=== PATIENT | female | born 1975 | race Caucasian/White ===

== ENCOUNTER 2023-05-06 08:11 | Outpatient (OUT) | payer OTHER, SELFPAY ==
[2023-05-06 09:24] LABS: Basophils Absolute Auto 0.1 10^3/uL (0.0-0.1); Basophils Percent Auto 1.1 % (0.2-2.0); Eosinophils Absolute Auto 0.3 10^3/uL (0.0-0.7); Eosinophils Percent Auto 2.3 % (0.9-7.0); Hematocrit 43.7 % (36.0-48.0); Hemoglobin 15.3 g/dL (12.0-16.0); Immature Granulocytes Abs Auto 0.04 10^3/uL (0.00-0.03); Immature Granulocytes Pct Auto 0.3 % (0.0-0.5); Lymphocytes Absolute Auto 3.1 10^3/uL (1.2-3.8); Lymphocytes Percent Auto 27.2 % (20.5-60.0); Mean Corpuscular Hemoglobin 30.9 pg (26.7-34.0); Mean Corpuscular Volume 88.3 fL (81.0-99.0); Mean Platelet Volume 10.6 fL (9.5-13.5); Monocytes Absolute Auto 0.8 10^3/uL (0.3-0.8); Neutrophils Absolute Auto 7.1 10^3/uL (1.4-6.5); Neutrophils Percent Auto 62.1 % (43.0-75.0); Platelet Count 224 10^3/uL (150-450); Red Blood Count 4.95 10^6/uL (4.20-5.40); Red Cell Distribution Width 11.9 % (11.0-15.0); White Blood Count 11.5 10^3/uL (4.0-11.0)
[2023-05-06 09:51] LABS: Bilirubin Urine NEGATIVE (NEGATIVE); Blood Urine SMALL (NEGATIVE); Clarity Urine CLEAR (CLEAR); Color Urine LT. YELLOW (YELLOW); Glucose Urine UA NEGATIVE (NEGATIVE); Ketones Urine NEGATIVE (NEGATIVE); Leukocyte Esterase Urine NEGATIVE (NEGATIVE); Nitrite Urine NEGATIVE (NEGATIVE); Protein Urine NEGATIVE (NEG/TRACE); Urobilinogen Urine 0.2 EU/dL (0.2-1.0); pH Urine 5.5 (5.0-9.0)
[2023-05-06 09:54] LABS: Alanine Aminotransferase 24 U/L (14-59); Alkaline Phosphatase 49 U/L (46-116); Anion Gap 13.5; Aspartate Amino Transferase <5 U/L (15-37); BUN Creatinine Ratio 19.8; Bilirubin Total 0.4 mg/dL (0.2-1.0); Calcium 9.3 mg/dL (8.5-10.1); Carbon Dioxide 29.4 mmol/L (21.0-32.0); Chloride 101 mmol/L (98-107); Chol HDL Ratio 6.4; Cholesterol 223 mg/dL (<=200); Estimated GFR (African America >60 (>=60); Estimated GFR (Non-African Ame >60 (>=60); Globulin 3.9 g/dL; Glucose 108 mg/dL (74-106); HDL Cholesterol 35 mg/dL (40-60); Potassium 3.9 mmol/L (3.5-5.1); Sodium 140 mmol/L (136-145); Thyroid Stimulating Hormone 2.825 uIU/mL (0.358-3.740); Total Protein 7.9 g/dL (6.4-8.2); Triglycerides 433 mg/dL (<=150); VLDL CHOLESTEROL 86.6 mg/dL
[2023-05-06 09:58] LABS: LDL Cholesterol Direct 114 mg/dL
[2023-05-06 10:03] LABS: Bacteria Urine SMALL #/HPF (NONE SEEN); RBC Urine 0-2 #/HPF (0-2); WBC Urine NONE SEEN #/HPF (NONE SEEN)
[2023-05-06 10:04] LABS: Squamous Epithelial Cell Urine FEW #/LPF (NONE/RARE)
== END 2023-05-06 08:12 | disposition home or self-care (01) ==
LOC: LAB 08:14
PROVIDERS: PCP Nurse Practitioner; Visit Provider Nurse Practitioner
DX: Z78.9 Other specified health status (principal)
CPT/HCPCS: 36415; 80053; 80061; 81001; 83721; 84443; 85025

== ENCOUNTER 2023-05-20 11:27 | Outpatient (OUT) | payer OTHER, SELFPAY ==
[2023-05-20 12:15] LABS: Bilirubin Urine NEGATIVE (NEGATIVE); Blood Urine NEGATIVE (NEGATIVE); Clarity Urine CLEAR (CLEAR); Color Urine YELLOW (YELLOW); Glucose Urine UA NEGATIVE (NEGATIVE); Ketones Urine TRACE mg/dL (NEGATIVE); Leukocyte Esterase Urine NEGATIVE (NEGATIVE); Nitrite Urine NEGATIVE (NEGATIVE); Protein Urine NEGATIVE (NEG/TRACE); Specific Gravity Urine >=1.030 (1.005-1.025)
[2023-05-20 12:18] LABS: Estimated Average Glucose 108 mg/dL; Glycohemoglobin A1C 5.4 % (4.5-6.2)
[2023-05-20 12:22] LABS: WBC Urine NONE SEEN #/HPF (NONE SEEN)
[2023-05-20 12:27] LABS: Bacteria Urine SMALL #/HPF (NONE SEEN); Mucus Urine NONE SEEN (NONE SEEN); RBC Urine NONE SEEN #/HPF (0-2); Squamous Epithelial Cell Urine FEW #/LPF (NONE/RARE)
[2023-05-20 12:28] LABS: Calcium Oxalate Crystals Urine FEW; Crystals Seen? Seen #/HPF (None Seen)
== END 2023-05-20 11:28 | disposition home or self-care (01) ==
LOC: LAB 11:28
PROVIDERS: PCP Nurse Practitioner; Visit Provider Nurse Practitioner
DX: E78.1 Pure hyperglyceridemia (principal); R31.29 Other microscopic hematuria
CPT/HCPCS: 36415; 81001; 83036

== ENCOUNTER 2023-07-21 19:43 | Outpatient (REF) | payer OTHER, SELFPAY ==
[2023-07-26 11:09] LABS: Age Gdln ACOG Testing Note (.); HPV Aptima Negative (Negative); IGP, Aptima HPV, rfx 16/18,45 Note (.)
== END 2023-07-21 19:44 | disposition home or self-care (01) ==
LOC: LAB 19:43
PROVIDERS: PCP Nurse Practitioner; Visit Provider Nurse Practitioner
DX: Z01.419 Encounter for gynecological examination (general) (routine) without abnormal findings (principal)
CPT/HCPCS: 87624; G0145

== ENCOUNTER 2023-07-23 07:34 | Outpatient (OUT) | payer OTHER, SELFPAY ==
[2023-07-23 08:40] LABS: Alanine Aminotransferase 20 U/L (14-59); Albumin Globulin Ratio 1.1; Albumin Level 3.8 g/dL (3.4-5.0); Alkaline Phosphatase 30 U/L (46-116); Anion Gap 12.6; Aspartate Amino Transferase 9 U/L (15-37); BUN Creatinine Ratio 17.5; Bilirubin Total 0.8 mg/dL (0.2-1.0); Calcium 8.9 mg/dL (8.5-10.1); Carbon Dioxide 29.1 mmol/L (21.0-32.0); Chloride 104 mmol/L (98-107); Chol HDL Ratio 5.4; Cholesterol 200 mg/dL (<=200); Estimated GFR (African America >60 (>=60); Estimated GFR (Non-African Ame >60 (>=60); Globulin 3.4 g/dL; Glucose 99 mg/dL (74-106); HDL Cholesterol 37 mg/dL (40-60); Potassium 3.7 mmol/L (3.5-5.1); Sodium 142 mmol/L (136-145); Total Protein 7.2 g/dL (6.4-8.2); Triglycerides 197 mg/dL (<=150); VLDL CHOLESTEROL 39.4 mg/dL
== END 2023-07-23 07:35 | disposition home or self-care (01) ==
PROVIDERS: PCP Nurse Practitioner; Visit Provider Nurse Practitioner
DX: R60.0 Localized edema (principal); E78.1 Pure hyperglyceridemia
CPT/HCPCS: 36415; 80053; 80061

== ENCOUNTER 2023-08-23 14:24 | Outpatient (OUT) | payer OTHER, SELFPAY ==
--- NOTE | 2023-08-23 14:25 | US_ITS ---
[address] [address] Patient Name: KJ REYES MRN: [id number] date: 1975 Sex: F Assigned Patient Location: Current Patient Location: Accession/Order Number: [id number] Exam Date: 08/23/2023 14:26 Report Date: 08/24/2023 06:26 At the request of: DIANA BEASLEY Procedure: US pelvis w/ transvaginal EXAMINATION: US pelvis w/ transvaginal HISTORY: PAIN WITH INTERCOURSE, VAGINAL DRYNESS COMPARISON: No relevant comparison available. TECHNIQUE: Transabdominal and/or transvaginal sonographic examination was performed as indicated by examination type. FINDINGS: UTERUS: Slightly heterogeneous echotexture. Normal size and contour. Uterus size: 6.9 x 2.6 x 1.7 cm ENDOMETRIUM: Normal homogeneous appearance. Endometrial thickness: 2 mm RIGHT OVARY: Normal size and appearance. Blood flow present within ovary on color Doppler. Ovary size: 1.4 x 1.0 x 1.7 cm LEFT OVARY: Normal size and appearance. Blood flow present within ovary on color Doppler. Ovary size: 1.7 x 0.9 x 1.7 cm CUL-DE-SAC: Unremarkable. No significant free fluid. BLADDER: Unremarkable. OTHER: None. US/US pelvis w/ transvaginal IMPRESSION: 1. No suspicious findings to account for patient's symptoms. Electronically authenticated by: GAY BARNES Date: 08/24/2023 06:26
== END 2023-08-23 14:25 | disposition home or self-care (01) ==
LOC: US 14:24
PROVIDERS: PCP Nurse Practitioner; Visit Provider Obstetrics & Gynecology
DX: N84.1 Polyp of cervix uteri (principal); N94.10 Unspecified dyspareunia; N89.8 Other specified noninflammatory disorders of vagina
CPT/HCPCS: 76830; 76856

== ENCOUNTER 2023-09-15 16:24 | Outpatient (OUT) | payer OTHER, SELFPAY ==
--- NOTE | 2023-09-15 | MM_ITS ---
Patient Name: KJ REYES MR#: [id number] : 1975 Exam Date: 09/15/2023 Ordering Doctor: MARICARMEN Hector CNP RADIOLOGY REPORT PROCEDURE: MM TOMOSYNTHESIS SCREENING BI COMPARISON: MAMMO POST BIOPSY LEFT, 09/03/2019. MG MAMM SCREEN TREMAINE W CAD, 08/21/2019. INDICATIONS: Screening for malignant neoplasm Calculator Name NCI Breast Cancer Risk Assessment Tool 5 Year Breast Cancer Risk 0.90% Lifetime Breast Cancer Risk 8.30% Personal Breast Cancer No Personal Ovarian Cancer No Treatments None Family Cancers Grandmother-maternal with breast cancer at age 80; Grandmother-paternal with lung cancer at age 76. LOCATION: [facility] BREAST COMPOSITION: Scattered areas fibroglandular density. FINDINGS: DIAGNOSTIC CATEGORY 2--BENIGN FINDING: RIGHT BREAST: No significant suspicious finding. No significant change has occurred. LEFT BREAST: No significant suspicious finding. Scattered benign-appearing lymph nodes are present. No significant change has occurred. RECOMMENDATIONS: ROUTINE MAMMOGRAM AND CLINICAL EVALUATION IN 12 MONTHS. PLEASE NOTE: A NORMAL MAMMOGRAM DOES NOT EXCLUDE THE POSSIBILITY OF BREAST CANCER. A CLINICALLY SUSPICIOUS PALPABLE LUMP SHOULD BE BIOPSIED. Dictated by: Mike Sullivan M.D. on 09/16/2023 at 14:27 Approved by: Mike Sullivan M.D. on 09/16/2023 at 14:30
== END 2023-09-15 16:25 | disposition home or self-care (01) ==
LOC: MAMMO 16:24
PROVIDERS: PCP Nurse Practitioner; Visit Provider Nurse Practitioner
DX: Z12.31 Encounter for screening mammogram for malignant neoplasm of breast (principal); Z80.3 Family history of malignant neoplasm of breast; Z80.1 Family history of malignant neoplasm of trachea, bronchus and lung
CPT/HCPCS: 77063; 77067

== ENCOUNTER 2024-09-17 20:02 | Outpatient (REF) | payer OTHER, SELFPAY ==
--- OUTSIDE RECORDS SUMMARY | 2024-09-17 20:26 | XMS_ITS | CCD ---
Author Organization [facility] Care Team Providers [facility] Utility Locator Name Role Phone KOJO, ABDULAZIM Admitting Unavailable KOJO, ABDULAZIM Attending Unavailable GAIL FABIAN Referring Unavailable GAIL FABIAN Primary Care Unavailable [place] Procedure Practitioner Unavailab nidia RUANO, SANKET Surgeon Unavailable [place] Procedure Practitioner Unavailab MICHELLE Riley Surgeon Unavailable NADERER, FABIAN Garrett Primary Care Unavailable AZUL LEON Admitting UnavailAZUL Schwab Attending UnavailLOUIS Moses V Consulting Unavailable AZUL LEON Consulting Unavailabl SHAHIDA Aleman Consulting Unavailable AICHHOLZ, NNEKA Admitting Unavailable AICHHOLZ, NNEKA Attending Unavailable AICHHOLZ, NNEKA Consulting Unavailable MIKE SULLIVAN R Consulting Unavailable AICHHOLZ, NNEKA Admitting Unavailable AICHHOLZ, NNEKA Attending Unavailable LOUIS VELÁZQUEZ V Consulting Unavailable AICHHOLZ, NNEKA Consulting Unavailable AICHHOLZ, NNEKA Admitting Unavailable AICHHOLZ, NNEKA Attending Unavailable FABIAN REYNOLDS A Primary Care Unavailable AICHHOLZ, NNEKA Consulting Unavailable JAMAEBLOWELL CALZADAEN R Consulting Unavailable AICHHOLZ, NNEKA Admitting Unavailable AICHHOLZ, NNEKA Attending Unavailable AICHHOLZ, NNEKA Consulting Unavailable JAMAEBER, MIKE R Consulting Unavailable AICHHOLZ, NNEKA Admitting Unavailable AICHHOLZ, NNEKA Attending Unavailable AICHHOLZ, NNEKA Primary Care Unavailable AICHHOLZ, NNEKA Consulting Unavailable JAMAEBER, MIKE R Consulting Unavailable Nelda Murillo Unavailable AICHHOLZ, NNEKA Attending Unavailable AICHHOLZ, NNEKA Attending Unavailable Allergies Allergy Classification Reported Allergen(s) Allergy Type Date of Onset Reaction(s) Facility (2 sources) Acetaminophen / oxyCODONE Drug Allergy 4 [facility] Repository (1 source) Acetaminophen / oxyCODONE Drug Allergy [facility] Other Medications Current Medications Medication Drug Class(es) Dates Sig (Normalized) Sig (Original) fenofibrate 50 mg oral capsule (1 source) Peroxisome Proliferator Receptor alpha Agonist take 1 capsule by mouth every twenty-four hours Fenofibrate 50 MG 1 capsule with a meal Orally Once a day for 30 days Active naproxen 500 mg delayed release oral tablet (1 source) Nonsteroidal Anti-inflammatory Drug take 1 tablet by mouth every twelve hours Naproxen 500 MG 1 tablet as needed Orally every 12 hrs Active penicillin v potassium 500 mg oral tablet (1 source) Start: 08-26-2023 take 1 tablet by mouth every six hours Penicillin V Potassium 500 MG 1 tablet Orally qid for 10 day(s) Aug, Active spironolactone 25 mg oral tablet (1 source) Aldosterone Antagonist take 1 tablet by mouth every twenty-four hours Spironolactone 25 MG 1 tablet Orally Once a day for 30 days Active Problems Active Problems Problem Classification Problem Date Documented Da te Episodic/Chronic Disorders of teeth and jaw (2 sources) Dental caries, unspecified; Translations: [Other specified disorders of teeth and supporting structures] Episodic Nonmalignant breast conditions (2 sources) Other specified disorders of breast; Translations: [Other benign mammary dysplasias of left breast] Onset: 08-29-2019 Episodic Nonmalignant breast conditions (3 sources) Unspecified lump in the left breast, upper outer quadrant; Translations: [UNS LUMP IN LT BREAST UPR OUTR QUAD] Onset: 09-03-2019 Other lower respiratory disease (4 sources) Other nonspecific abnormal finding of lung field; Translations: [OTH NONSPECIFIC ABN FIND LNG FIELD] Onset: 07-23-2019 Episodic Other lower respiratory disease (4 sources) Cough; Translations: [COUGH] Onset: 07-18-2019 Episodic Other lower respiratory disease (1 source) Pleurodynia; Translations: [PLEURODYNIA] Onset: 07-20-2019 Episodic Other nutritional; endocrine; and metabolic disorders (1 source) Obesity, unspecified; Translations: [OBESITY UNSPECIFIED] Onset: 02-19-2019 Chronic Other screening for suspected conditions (not mental disorders or infectious disease) (9 sources) Encounter for screening mammogram for malignant neoplasm of breast; Translations: [Other abnormal and inconclusive findings on diagnostic imaging of breast] Onset: 08-21-2019 Episodic Residual codes; unclassified (1 source) Family history of malignant neoplasm of trachea, bronchus and lung; Translations: [FAM HX MALIG NEOPLSM TRACH BRON LNG] Onset: 08-23-2019 Episodic Residual codes; unclassified (1 source) Family history of malignant neoplasm of breast; Translations: [FAMILY HX MALIG NEOPLASM OF BREAST] Onset: 08-23-2019 Episodic Substance-related disorders (2 sources) Nicotine dependence, cigarettes, uncomplicated; Translations: [NICOTINE DEPENDENCE, CIGARETTES, UNCOMPLICATED] Onset: 02-21-2018 Chronic Unclassified (1 source) CLOSED FRACTURE OF DISTAL END OF Onset: 02-21-2018 Past or Other Problems Problem Classification Problem Date Documented Da te Episodic/Chronic Complication of device; implant or graft (1 source) Pain due to internal orthopedic prosthetic devices, implants and grafts, initial encounter; Translations: [PAIN DUE TO INTERNAL ORTHOPEDIC PROSTH DEV/GRFT, INIT] Onset: 02-21-2018 Episodic Fracture of upper limb (5 sources) Unspecified fracture of the lower end of right radius, initial encounter for closed fracture; Translations: [Closed fracture of distal end of radius] Onset: 02-21-2018 Episodic Other bone disease and musculoskeletal deformities (1 source) Other specified disorders of cartilage, other site; Translations: [OTHER SPECIFIED DISORDERS OF CARTILAGE, OTHER SITE] Onset: 02-21-2018 Episodic Other connective tissue disease (1 source) Other synovitis and tenosynovitis, right hand; Translations: [OTHER SYNOVITIS AND TENOSYNOVITIS, RIGHT HAND] Onset: 02-21-2018 Episodic Other non-traumatic joint disorders (1 source) Pain in right wrist; Translations: [PAIN IN RIGHT WRIST] Onset: 02-21-2018 Episodic Other non-traumatic joint disorders (3 sources) Pain in right knee; Translations: [PAIN IN RIGHT KNEE] Onset: 02-15-2019 Episodic Sprains and strains (1 source) Strain of other muscle(s) and tendon(s) at lower leg level, right leg, initial encounter; Translations: [STRAIN OTH MSC TEND LOW RT LEG INIT] Onset: 02-19-2019 Episodic Results Test Name Value Interpretation Reference Range Facil ity MAMMO POST BIOPSY LEFTon MAMMO POST BIOPSY LEFT Patient: KJ WAGONER. Exam Date: 09/03/2019 : 1975 Gender:F Ordering : MARICARMEN HECTOR [facility] Admission #: [id number] Family : Order #: [id number] CLICK HERE TO VIEW EXAM RADIOLOGY REPORT PROCEDURE: MAMMOGRAM POST BIOPSY IMAGES COMPARISON: MG MAMM SCREEN TREMAINE W CAD, 08/21/2019. MG MAMM LT DIAG FU, 08/28/2019. INDICATIONS: Lump in left breast BREAST COMPOSITION: FINDINGS: BIOPSY MARKER: A metallic marker has been placed in the targeted location within the posterior upper-outer quadrant of the left breast. BREAST FINDINGS: Expected post biopsy findings. RECOMMENDATIONS: Dictated by: Mike Sullivan M.D. on 09/03/2019 at 10:39 Approved by: Mike Sullivan M.D. on 09/03/2019 at 10:40 Normal [facility] US VAC ASST BX BRST LT W CLI Gama 09-03-2019 US VAC ASST BX BRST LT W CLIP Patient: KJ WAGONER Exam Date: 09/03/2019 : 1975 Gender:F Ordering : MARICARMEN HECTOR [facility] Admission #: [id number] Family : Order #: [id number] CLICK HERE TO VIEW EXAM This report includes an Addendum and supersedes previous reports for this exam. RADIOLOGY REPORT PROCEDURE: ULTRASOUND BIOPSY VACCUUM ASSISTED LEFT WITH CLIP COMPARISON: US BREAST LEFT LIMITED, 08/28/2019. MG MAMM LT DIAG FU, 08/28/2019. INDICATIONS: Lump in left breast DESCRIPTION: After obtaining informed consent, a vacuum assisted ultrasound-guided biopsy was performed in the usual sterile manner. The location of the biopsy was then marked as indicated below. FINDINGS: RECOMMENDATIONS: SPECIMEN #, LOCATION: 3 core samples, left breast 1:00 hyperechoic mass. BIOPSY NEEDLE: 13 gauge vacuum core biopsy needle. MARKERS(S) PLACED: A single metallic marker was placed in the appropriate targeted location. MEDICATION: Buffered 1% lidocaine with epinephrine administered locally. COMPLICATIONS: None. PATHOLOGY LAB: Pending. CONCLUSION: 1. Uneventful ultrasound-guided breast biopsy. 2. Pathology results are pending. An addendum to this report will be provided after pathology results are available. Dictated by: Mike Sullivan M.D. on 09/03/2019 at 10:41 Approved by: Mike Sullivan M.D. on 09/03/2019 at 10:42 ADDENDUM: The pathology report is now available and shows benign findings concordant with the imaging findings. Final diagnosis negative for malignancy . Surgical pathology report faxed to Nneka Hector. Verified with Miriam by telephone. Dictated by: Louis Velázquez M.D. on 09/10/2019 at 11:50 Approved by: Louis Velázquez M.D. on 09/10/2019 at 11:51 Normal [facility] MG MAMM LT DIAG FUon 019 MG MAMM LT DIAG FU Patient: KJ WAGONER Exam Date: 08/28/2019 : 1975 Gender:F Ordering : MARICARMEN HECTOR [employer] Admission #: [id number] Family : Order #: [id number] CLICK HERE TO VIEW EXAM RADIOLOGY REPORT PROCEDURE: MAMMOGRAM LEFT DIAGNOSTIC DIGITAL FOLLOW UP, 08/28/2019, 08:57 ULTRASOUND BREAST LEFT LIMITED, 08/28/2019, 09:15 COMPARISON: MG MAMM SCREEN TREMAINE W CAD, 08/21/2019. INDICATIONS: Abnormal findings on diagnostic imaging of breast Calculator Name NCI Breast Cancer Risk Assessment Tool 5 Year Breast Cancer Risk 0.50% Lifetime Breast Cancer Risk 7.20% Personal Breast Cancer No Personal Ovarian Cancer No Treatments None Family Cancers Grandmother-maternal with breast cancer at age 80; Grandmother-paternal with lung cancer at age 76. LOCATION: [facility] BREAST COMPOSITION: Scattered areas fibroglandular density. FINDINGS: DIAGNOSTIC CATEGORY 4--SUSPICIOUS FOR MALIGNANCY BUT FINDING DOES NOT EXHIBIT CLASSIC FINDINGS OF BREAST CANCER: LEFT BREAST: Spot magnification views demonstrate persistence of a geographic shaped asymmetry within the posterior upper-outer quadrant. Ultrasound evaluation demonstrates a 1.4 x 0.5 x 0.9 cm hyperechoic irregular lesion with mild posterior shadowing at the 1 o'clock position, approximately 10 cm from the nipple which is felt to correspond to the mammographic finding. Ultrasound-guided tissue sampling is recommended. The findings, recommendations, and alternatives were discussed with the patient. Our radiology department nurse will be contacting the patient to assist in scheduling of the biopsy. RECOMMENDATIONS: ULTRASOUND-GUIDED CORE BIOPSY: LEFT BREAST PLEASE NOTE: A NORMAL MAMMOGRAM DOES NOT EXCLUDE THE POSSIBILITY OF BREAST CANCER. A CLINICALLY SUSPICIOUS PALPABLE LUMP SHOULD BE BIOPSIED. Dictated by: Mike Sullivan M.D. on 08/28/2019 at 10:20 Approved by: Mike Sullivan M.D. on 08/28/2019 at 10:23 Normal [facility] US BREAST LEFT LIMITEDon US BREAST LEFT LIMITED Patient: KJ WAGONER Exam Date: 08/28/2019 : 1975 Gender:F Ordering : MARICARMEN NNEKA [employer]ECTOR [employer] Admission #: [id number] Family : Order #: [id number] CLICK HERE TO VIEW EXAM RADIOLOGY REPORT PROCEDURE: MAMMOGRAM LEFT DIAGNOSTIC DIGITAL FOLLOW UP, 08/28/2019, 08:57 ULTRASOUND BREAST LEFT LIMITED, 08/28/2019, 09:15 COMPARISON: MG MAMM SCREEN TREMAINE W CAD, 08/21/2019. INDICATIONS: Abnormal findings on diagnostic imaging of breast Calculator Name NCI Breast Cancer Risk Assessment Tool 5 Year Breast Cancer Risk 0.50% Lifetime Breast Cancer Risk 7.20% Personal Breast Cancer No Personal Ovarian Cancer No Treatments None Family Cancers Grandmother-maternal with breast cancer at age 80; Grandmother-paternal with lung cancer at age 76. LOCATION: [facility] BREAST COMPOSITION: Scattered areas fibroglandular density. FINDINGS: DIAGNOSTIC CATEGORY 4--SUSPICIOUS FOR MALIGNANCY BUT FINDING DOES NOT EXHIBIT CLASSIC FINDINGS OF BREAST CANCER: LEFT BREAST: Spot magnification views demonstrate persistence of a geographic shaped asymmetry within the posterior upper-outer quadrant. Ultrasound evaluation demonstrates a 1.4 x 0.5 x 0.9 cm hyperechoic irregular lesion with mild posterior shadowing at the 1 o'clock position, approximately 10 cm from the nipple which is felt to correspond to the mammographic finding. Ultrasound-guided tissue sampling is recommended. The findings, recommendations, and alternatives were discussed with the patient. Our radiology department nurse will be contacting the patient to assist in scheduling of the biopsy. RECOMMENDATIONS: ULTRASOUND-GUIDED CORE BIOPSY: LEFT BREAST PLEASE NOTE: A NORMAL MAMMOGRAM DOES NOT EXCLUDE THE POSSIBILITY OF BREAST CANCER. A CLINICALLY SUSPICIOUS PALPABLE LUMP SHOULD BE BIOPSIED. Dictated by: Mike Sullivan M.D. on 08/28/2019 at 10:20 Approved by: Mike Sullivan M.D. on 08/28/2019 at 10:23 Normal [facility] MG MAMM SCREEN TREMAINE W CADon 1 10-21-2018 MG MAMM SCREEN TREMAINE W CAD Patient: KJ WAGONER. Exam Date: 08/21/2019 : 1975 Gender:F Ordering : MARICARMEN PANTOJA JENNIRuelJIMMYHoward [facility] Admission #: [id number] Family : Order #: [id number] CLICK HERE TO VIEW EXAM RADIOLOGY REPORT PROCEDURE: MAMMOGRAM BILATERAL SCREENING DIGITAL WITH COMPUTER AIDED DETECTION COMPARISON: None. INDICATIONS: Screening mammography Calculator Name NCI Breast Cancer Risk Assessment Tool 5 Year Breast Cancer Risk 0.50% Lifetime Breast Cancer Risk 7.20% Personal Breast Cancer No Personal Ovarian Cancer No Treatments None Family Cancers Grandmother-maternal with breast cancer at age 80; Grandmother-paternal with lung cancer at age 76. LOCATION: [facility] BREAST COMPOSITION: Scattered areas fibroglandular density. FINDINGS: DIAGNOSTIC CATEGORY 0--INCOMPLETE ASSESSMENT: NEED ADDITIONAL IMAGING EVALUATION. RIGHT BREAST: No significant suspicious finding. LEFT BREAST: 11 mm lobular asymmetry within the posterior upper-outer quadrant. Spot magnification views and ultrasound are recommended for further evaluation. RECOMMENDATIONS: ADDITIONAL MAMMOGRAPHIC VIEWS REQUIRED: LEFT BREAST - LEFT CRANIOCAUDAL SPOT MAGNIFICATION VIEW - LEFT OBLIQUE SPOT MAGNIFICATION VIEW - ULTRASOUND: LEFT BREAST PLEASE NOTE: A NORMAL MAMMOGRAM DOES NOT EXCLUDE THE POSSIBILITY OF BREAST CANCER. A CLINICALLY SUSPICIOUS PALPABLE LUMP SHOULD BE BIOPSIED. Dictated by: Mike Sullivan M.D. on 08/21/2019 at 17:06 Approved by: Mike Sullivan M.D. on 08/21/2019 at 17:08 Normal [facility] XR CHEST 2 Von 07-23-2019 XR CHEST 2 V Patient: KJ WAGONER Exam Date: 07/23/2019 : 1975 Gender:F Ordering : MARICARMEN PANTOJA JENNIEZIO [facility] Admission #: [id number] Family : Order #: [id number] CLICK HERE TO VIEW EXAM RADIOLOGY REPORT PROCEDURE: RADIOGRAPH CHEST 2 VIEWS COMPARISON: XR CHEST 2 V, 07/18/2019. INDICATIONS: Lung field abnormal, acute left chest pain FINDINGS: LUNGS: Right apical scarring, stable. Interval resolution of left basilar opacity No new focal parenchymal infiltrates. VASCULATURE: No increased pulmonary vasculature. PLEURA: No pneumothorax, effusion, or pleural thickening. CARDIAC: No cardiomegaly or cardiac silhouette abnormality. MEDIASTINUM: No visible mass or adenopathy. BONES: No fracture or visible bone lesion. OTHER: Negative. CONCLUSION: No acute disease. Dictated by: Louis Velázquez M.D. on 07/23/2019 at 10:58 Approved by: Louis Velázquez M.D. on 07/23/2019 at 10:59 Normal [facility] XR CHEST 2 Von 07-18-2019 XR CHEST 2 V Patient: KJ WAGONER. Exam Date: 07/18/2019 : 1975 Gender:F Ordering : MARICARMEN HECTOR [facility] Admission #: [id number] Family : Order #: [id number] CLICK HERE TO VIEW EXAM RADIOLOGY REPORT PROCEDURE: RADIOGRAPH CHEST 2 VIEWS COMPARISON: XR CHEST 2 V, 07/27/2016. INDICATIONS: Acute cough, left lower lateral rib pain without injury FINDINGS: LUNGS: Small patchy opacity within the left lower lung. VASCULATURE: No increased pulmonary vasculature. PLEURA: No pneumothorax, effusion, or pleural thickening. CARDIAC: No cardiomegaly or cardiac silhouette abnormality. MEDIASTINUM: No visible mass or adenopathy. BONES: No fracture or visible bone lesion. OTHER: Negative. CONCLUSION: 1. Mild left basilar infiltrate versus atelectasis. Dictated by: Mike Sullivan M.D. on 07/18/2019 at 11:31 Approved by: Mike Sullivan M.D. on 07/18/2019 at 11:32 Normal [facility] XR RIBS LT NO CH 2Von 2018 XR RIBS LT NO CH 2V Patient: KJ WAGONER. Exam Date: 07/18/2019 : 1975 Gender:F Ordering : MARICARMEN HECTOR [facility] Admission #: [id number] Family : Order #: [id number] CLICK HERE TO VIEW EXAM RADIOLOGY REPORT PROCEDURE: RADIOGRAPH RIBS LEFT NO CHEST 2 VIEWS COMPARISON: XR CHEST 2 V, 07/18/2019. INDICATIONS: Acute cough, left lower lateral rib pain without injury FINDINGS: RIBS: No fracture or visible bone lesion. LUNGS: No appreciable pneumothorax or pleural thickening. OTHER: Negative. CONCLUSION: 1. No acute bone abnormality. Dictated by: Mike Sullivan M.D. on 07/18/2019 at 11:28 Approved by: Mike Sullivan M.D. on 07/18/2019 at 11:31 Normal [facility] XR KNEE RT 4V OR >on 019 XR KNEE RT 4V OR > Patient: KJ WAGONER Exam Date: 02/15/2019 : 1975 Gender:F Ordering : SHAHIDA DING Admission #: [id number] Family : DR. AZUL LEON M.D. Order #: [id number] CLICK HERE TO VIEW EXAM RADIOLOGY REPORT PROCEDURE: RADIOGRAPH KNEE RIGHT MIN 4 VIEWS COMPARISON: None. INDICATIONS: Acute pain in right leg mainly over anterior aspect FINDINGS: BONES: No fracture, acute abnormality, or significant arthropathy. SOFT TISSUES: No visible soft tissue swelling or radiopaque foreign body. EFFUSION: None visible. OTHER: Negative. CONCLUSION: Normal examination. Dictated by: Louis Velázquez M.D. on 02/16/2019 at 08:00 Approved by: Louis Velázquez M.D. on 02/16/2019 at 08:01 Normal [facility] Operative Reporton 8 Operative Report MR#: [id number] [facility] Pt. Name: Kj Wagoner Room #: 0C Discharge Date: Birthdate: 1975 OPERATIVE REPORT DATE OF SURGERY: 02/21/2018 SURGEON: Colin Ruano M.D. SURGEON: Colin Ruano M.D. RADIOLOGIC TECH: Cesar Quiroz M.D. PREPROCEDURE DIAGNOSES: Right wrist symptomatic hardware and right wrist TFCC tear. POSTPROCEDURE DIAGNOSES: Right wrist symptomatic hardware and right wrist synovitis. PROCEDURE PERFORMED: Right wrist removal of distal radius plate with right wrist arthroscopy and synovectomy. SPECIMENS: None. DRAINS: None. IMPLANTS: None. COMPLICATIONS: None. SUMMARY: The patient is a 42-year-old female previously sustained a right distal radius fracture, underwent open reduction and internal fixation, presented to clinic with ulnar-sided wrist pain as well as pain along the flexor tendons consistent with symptomatic hardware, decision was made to undergo the aforementioned surgical procedure. Risks, benefits, and alternatives were explained to the patient. The patient elected to undergo surgical intervention. PROCEDURE IN DETAIL: The patient greeted in preop holding. The right upper extremity was marked by operating surgeon. The patient was given axillary nerve block by the Anesthesia Service prior to be taken to the OR. The patient was taken to the operating room, placed in supine position where MAC anesthesia administered. Nonsterile tourniquet was placed to the right upper extremity. The right upper extremity prepped and draped in normal sterile fashion. Time-out was taken prior to procedure. Preoperative antibiotics in form of Ancef were administered prior to procedure. After the time-out was taken, we elevated the arm and used Esmarch to exsanguinate the extremity. Inflated the tourniquet to 250 mmHg and placed the arm into the tower for the arthroscopic portion of the procedure. Infiltrated the capsule with 10 mL of normal saline. Made a small skin incision, 1 cm distal to the Tin's tubercle and 3-4 portal, bluntly dissected down to the capsule and introduced our trocar for scope entering the capsule easily. Placed our camera in and performed a diagnostic scope evaluation. The cartilage of the distal radius and scaphoid were well preserved as well as the lunate/lunate fossa. Scapholunate ligament was intact. We then subsequently moved over to the ulnar side of the wrist and noted there was severe inflamed synovium along the dorsal ulnar side, however, the TFCC was intact and there were no tears visible. We placed a shaver in a 6R portal and then performed a synovectomy and debriding the synovium, which was inflamed along the dorsal aspect of the capsule. We then subsequently removed all the water and placed simple stitch sutures in the portal sites. Took the arm out of the tower and traction and placed it down on the table and used the preexisting incision using a Joseluis volar approach to the wrist. Dissecting down this interval, identified the plate, used electrocautery to remove the fibrous tissue off the plate. Removed all screws and plate with no complications. Subsequently rongeured down any bony prominences. We irrigated with copious amount of normal saline. Closed the skin with 3-0 Vicryl, followed by 4-0 Novafil and then placed Xeroform over the incision sites, placed in a sterile dressing and a volar splint, placed in a sling, taken to PACU in stable condition. Tourniquet was let down prior to the Arnoldo wrap being put on. Nonweightbearing right upper extremity. Follow up with Dr. Ruano for suture removal in 10-[address] Ruano was present throughout all critical portions of procedure, immediately available throughout to assist. Electronically Signed by: Colin Ruano M.D. 02/27/2018 11:51 A Colin Ruano M.D. I was present for the entire procedure. Date Dict: 02/21/2018/10:49 A/Cesar Quiroz M.D. Date Trans: 02/21/2018 01:33 P/mmo [id number] cc: Fabian Reynolds M.D. [id number] [facility] [id number] Normal [facility] POC GLUCOSE LABon 02-21-2018 Glucose mass conc 109 mg/dL High 70-100 [facility] Comment on above: Performed By: #### [id number] #### [facility] [address] [place] [address], [facility] POC URINE PREGNANCYon 2017 HCG.beta subunit ( test) Ql (U) Negative Normal NEGATIVE [facility] Comment on above: Result Comment: Perf ormed in PACU Performed By: #### [id number] #### [facility] [address] [place] [address], [facility] Vital Signs Date Time Vital Sign Value Performing Clinician Facility 08-26-2023 15:25-0500 Body height 167.64 cm Nelda Murillo Other [facility] Other 08-26-2023 15:25-0500 Body mass index (BMI) [Ratio] 31.28 kg/m2 Nelda Murillo Other [facility] Other 08-26-2023 15:25-0500 Body temperature 97.5 [degF] Nelda Jacobsmond Other [facility] Other 08-26-2023 15:25-0500 Body weight 87.91 kg Nelda Jacobsmond Other [facility] Other 08-26-2023 15:25-0500 Respiratory rate 18 /min Nelda Lidia Other [facility] Other 08-26-2023 15:25-0500 SaO2% (BldA) [Mass fraction] 97 % Nelda Lidia Other [facility] Other Encounters Encounter Date Encounter Type Care Provider Facility Start: 04-02-2024 End: 04-02-2024 ambulatory NNEKA AICHHOLZ Not Available Start: 09-28-2023 End: 09-28-2023 ambulatory NNEKA AICHHOLZ Not Available Start: 08-26-2023 End: 08-26-2023 ambulatory Nelda Murillo Other [facility] Other Start: 08-26-2023 Office outpatient ne w 10 minutes Nelda Murillo [facility] Start: 09-03-2019 End: 09-03-2019 Patient encounter procedure NNEKA AICHHOLZ Facility:[facility] Start: 08-28-2019 End: 08-29-2019 Patient encounter procedure NNEKA AICHHOLZ Facility:[facility] Start: 08-21-2019 End: 08-22-2019 Patient encounter procedure NNEKA AICHHOLZ Facility:[facility] Start: 07-23-2019 End: 07-24-2019 Patient encounter procedure NNEKA AICHHOLZ Facility:[facility] Start: 07-18-2019 End: 07-19-2019 Patient encounter procedure NNEKA AICHHOLZ Facility:[facility] Start: 02-15-2019 End: 02-16-2019 Patient encounter procedure FABIAN A NADERER Facility:[facility] Start: 02-21-2018 End: 02-22-2018 Patient encounter procedure ABDULAZIM KOJO Facility:[facility] [facility] Procedures Date Procedure Procedure Detail Performing Clinician Start: 02-21-2018 ANESTH LOWER ARM SURGERY MICHELLE Jeffy RUSSELL Start: 02-21-2018 REMOVAL OF SUPPORT IMPLANT ABDULAZIM KOJO Start: 02-21-2018 WRIST ARTHROSCOPY/SURGERY ABDULAZIM KOJO Payers Date Payer Category Payer Unknown [id number] 1975 Unknown [id number] 2.16.8 [id number] 1975 Unknown [id number] 2.16.84 [id number] 1976 Unknown [id number] 2.16.84 [id number] 1976 Unknown [id number] 2.16.84 [id number] 1976 Unknown [id number] 2.16.84 [id number] 1976 Unknown [id number] 2.16.84 [id number] 1976 Unknown [id number] 2.16.84 [id number] 1976 Unknown [id number] 2.16.84 [id number] 1976 Unknown [id number] 2.16.840 .[id number] 1958 Private Health Insurance [id number] Worker's Compensation [id number] Social History Date Type Detail Facility Sex Assigned At [facility] Other Evaluation note 08-26-2023 Note Date & Type Note Facility 08-26-2023 Evaluation note Encounter Date Diagnosis Assessment Notes Aug, Dental decay (ICD-10 - K02.9) Tooth decay home care material was printed Drink plenty fluids, get plenty of rest. Take the penicillin as prescribed until gone. Take ibuprofen, 600 to 800 mg 3-4 times a day with food as needed for mild to moderate pain. For severe pain add 2 extra strength Tylenol to your ibuprofen dose. Rinse your mouth with warm water with peroxide after eating. Follow-up with your dentist as scheduled. Aug, Dentalgia (ICD-10 - K08.89) [facility] Other History general Narrative - Reported Note Date & Type Note Facility History general Narrative - Reported Type Medical History HYPERLIPIDEMIA Medical History [facility] Surgical History Hospitalization History SEE ABOVE [facility] Other Summary Purpose Family History No Family History Records FoundNo Family History Records FoundNo Family History Records Found Advance Directives No Advanced Directives Records FoundNo Advanced Directives Records FoundNo Advanced Directives Records Found Additional Source Comments INFORMATION SOURCE (unrecogn ized section and content) DATE CREATED AUTHOR 01/28/2019 [facility] DATE CREATED AUTHOR AUTHOR'S ORGANIZ ATION 09/10/2019 [facility] DATE CREATED AUTHOR AUTHOR'S ORGANIZ ATION 04/04/2024 [facility] EPIC REASON FOR VISIT (unrecogniz ed section and content) INFECTED TOOTH FOR RECORDS PERTAINING TO PATIENTS WHO ARE OR HAVE BEEN ENROLLED IN A CHEMICAL DEPENDENCY/SUBSTANCEABUSE PROGRAM, SOME INFORMATION MAY BE OMITTED. This clinical summary was aggregated from multiple sources. Caution should be exercised in using it in the provision of clinical care. This summary normalizes information from multiple sources, and as a consequence, information in this document may materially change the coding, format and clinical context of patient data. In addition, data may be omitted in some cases. CLINICAL DECISIONS SHOULD BE BASED ON THE PRIMARY CLINICAL RECORDS. [employer] provides no warranty or guarantee of the accuracy or completeness of information in this document.
== END 2024-09-17 20:03 | disposition home or self-care (01) ==
LOC: LAB 20:02
PROVIDERS: PCP Nurse Practitioner; Visit Provider Obstetrics & Gynecology
DX: Z01.419 Encounter for gynecological examination (general) (routine) without abnormal findings (principal)
CPT/HCPCS: 87624; 88175

== ENCOUNTER 2024-09-18 16:25 | Outpatient (OUT) | payer OTHER, SELFPAY ==
--- NOTE | 2024-09-18 16:27 | MM_ITS ---
Patient Name: KJ REYES MR#: [id number] : 1975 Exam Date: 09/18/2024 Ordering Doctor: MARICARMEN Hector CNP RADIOLOGY REPORT PROCEDURE: MM TOMOSYNTHESIS SCREENING BI COMPARISON: MAMMO POST BIOPSY LEFT, 09/03/2019. MM TOMOSYNTHESIS SCREENING BI, 09/15/2023. INDICATIONS: Screening for malignant neoplasm Calculator Name NCI Breast Cancer Risk Assessment Tool 5 Year Breast Cancer Risk 0.90% Lifetime Breast Cancer Risk 8.10% Personal Breast Cancer No Personal Ovarian Cancer No Treatments None Family Cancers Grandmother-maternal with breast cancer at age 80; Grandmother-paternal with lung cancer at age 76. LOCATION: [facility] BREAST COMPOSITION: There are scattered areas of fibroglandular density. FINDINGS: DIAGNOSTIC CATEGORY 1--NEGATIVE. NO CHANGE FROM COMPARISON ASSESSMENT. Scattered benign-appearing calcifications are present. Scattered benign-appearing lymph nodes are present. RIGHT BREAST: No significant suspicious finding. LEFT BREAST: No significant suspicious finding. Microclip marker upper outer quadrant, stable. RECOMMENDATIONS: ROUTINE MAMMOGRAM AND CLINICAL EVALUATION IN 12 MONTHS. PLEASE NOTE: A NORMAL MAMMOGRAM DOES NOT EXCLUDE THE POSSIBILITY OF BREAST CANCER. A CLINICALLY SUSPICIOUS PALPABLE LUMP SHOULD BE BIOPSIED. Dictated by: Jordon Miles MD on 09/19/2024 at 08:46 Approved by: Jordon Miles MD on 09/19/2024 at 08:48
== END 2024-09-18 16:26 | disposition home or self-care (01) ==
LOC: MAMMO 16:25
PROVIDERS: PCP Nurse Practitioner; Visit Provider Nurse Practitioner
DX: Z12.31 Encounter for screening mammogram for malignant neoplasm of breast (principal); Z80.3 Family history of malignant neoplasm of breast; Z80.1 Family history of malignant neoplasm of trachea, bronchus and lung
CPT/HCPCS: 77063; 77067